=== PATIENT | male | born 1980 | race Hispanic/Latino ===

== ENCOUNTER 2019-11-03 14:53 | Emergency (ER) | payer SELFPAY ==
[2019-11-03] MEDS ORDERED: LIDOCAINE 1% MPF 5 ML VIAL ONE (15:20)
[2019-11-03] MEDS ORDERED: TETANUS & DIPHTHERIA TOX,ADULT 0.5 ML VIAL ONE (15:21)
[2019-11-03] MEDS ORDERED: DERMABOND SKIN ADHESIVE TOP ONE (15:48)
--- NOTE | 2019-11-03 16:00 | ER ---
Nurse's Notes [facility] Name: Garth Pacheco Age: 39 yrs Sex: Male : 1980 Arrival Date: 11/03/2019 Time: 14:56 Bed 16 Private MD: Diagnosis: Laceration without foreign body of lip Presentation: 11/03 15:01 Presenting complaint: Patient states: He got hit with a board an hour ago, laceration ss noted to upper lip, bleeding controlled. Transition of care: patient was not received from another setting of care. Complicating Factors: There are no complicating factors for this patient. Onset of symptoms was November 03, 2019. Risk Assessment: Do you want to hurt yourself or someone else? Patient reports no desire to harm self or others. Initial Sepsis Screen: Does the patient meet any 2 criteria? No. Patient's initial sepsis screen is negative. Does the patient have a suspected source of infection? No. Patient's initial sepsis screen is negative. Care prior to arrival: None. 15:01 Method Of Arrival: Ambulatory ss 15:01 Acuity: LAURYN 4 ss Triage Assessment: 15:01 General: Appears in no apparent distress. comfortable, Behavior is calm, cooperative, ss appropriate for age. Pain: Complains of pain in mouth. Neuro: Level of Consciousness is awake, alert, obeys commands. Injury Description: Laceration sustained to mouth. Historical: - Allergies: 15:01 No Known Allergies; ss - Home Meds: 15:01 None [Active]; ss - PMHx: 15:01 None; ss - PSHx: 15:01 None; ss - Immunization history:: Last tetanus immunization: unknown. - Coronavirus screen:: The patient has NOT traveled to [place], [place], or [place] in the past 14 days. - Social history:: Smoking status: Patient/guardian denies using tobacco. - Ebola Screening: : Patient denies travel to an Ebola-affected area in the 21 days before illness onset. Screenin:10 Abuse screen: Denies threats or abuse. Denies injuries from another. Nutritional sg screening: No deficits noted. Tuberculosis screening: No symptoms or risk factors identified. Never had TB. Fall Risk None identified. Assessment: 15:10 General: Appears in no apparent distress. well groomed, well developed, well nourished, sg Behavior is calm, cooperative, appropriate for age. Pain: Complains of pain in upper vermilion border Quality of pain is described as throbbing. Neuro: Level of Consciousness is awake, alert, obeys commands, Oriented to person, place, time, Polymerization Helper are equal bilaterally Moves all extremities. Gait is steady, Speech is normal, Facial symmetry appears normal. Cardiovascular: Patient's skin is warm and dry. Chest pain is denied. Respiratory: Airway is patent Respiratory effort is even, unlabored, Respiratory pattern is regular, symmetrical. GI: No signs and/or symptoms were reported involving the gastrointestinal system. : No signs and/or symptoms were reported regarding the genitourinary system. EENT: No signs and/or symptoms were reported regarding the EENT system. Derm: Skin is pink, warm \T\ dry. Musculoskeletal: Circulation, motion, and sensation intact. Range of motion: intact in all extremities, Swelling absent. Injury Description: Laceration sustained to upper vermilion border is clean, superficial, 0.5 to 2.5 cm long, was sustained 30-60 minutes ago. is bleeding a small amount. Vital Signs: 15:01 BP 141 / 95; Pulse 80; Resp 18; Temp 97.7; Pulse Ox 97% on R/A; Weight 81.65 kg (R); ss Height 5 ft. 3 in. (160.02 cm) (R); Pain 1/10; 16:04 BP 136 / 82; Pulse 80; Resp 17; Pulse Ox 98% on R/A; sg 15:01 Body Mass Index 31.89 (81.65 kg, 160.02 cm) ED Course: 14:56 Patient arrived in ED. mr 15:01 Triage completed. ss 15:01 Arm band placed on Patient placed in an exam room. ss 15:05 Lee Jones NP is PHCP. pm1 15:05 Alcides Rivers MD is Attending Physician. pm1 15:10 Patient has correct armband on for positive identification. Bed in low position. Call sg light in reach. Side rails up X2. herbologist on. Pulse ox on. NIBP on. Warm blanket given. Head of bed elevated. 15:15 Baldemar Moreno, RAH is Primary Nurse. 16:04 No provider procedures requiring assistance completed. Patient did not have IV access sg during this emergency room visit. 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 Exp: brodie 10/17/2021. Lot #: [id number]. } Route: IM; Site: left deltoid; 16:04 Drug: Ibuprofen 600 mg Route: PO; sg Outcome: 16:00 Discharge ordered by MD. pm1 16:04 Discharged to home ambulatory, with family. sg 16:04 Condition: good 16:04 Discharge instructions given to patient, Instructed on discharge instructions, follow up and referral plans. safety practices, wound care, Demonstrated understanding of instructions, follow-up care. 16:07 Patient left the ED. sg Signatures: Baldemar Moreno RN RN sg Rivera, Mary mr Smirch, Shelby, RN RN Lee Jones, LEAD C DEVELOPER LEAD C DEVELOPER pm1
--- NOTE | 2019-11-03 16:00 | EDPHYS ---
Physician Documentation [facility] Name: Garth Pacheco Age: 39 yrs Sex: Male : 1980 Arrival Date: 11/03/2019 Time: 14:56 Bed 16 Private MD: ED Physician Alcides Rivers HPI: 11/03 15:09 This 39 yrs old Male presents to ER via Ambulatory with complaints of pm1 Laceration To Lip. 15:09 The patient has a laceration occurred at home, and there are no complicating factors. pm1 The injury was The wind blew up a piece of wood that he was working with and it hit his upper lip . The laceration(s) is(are) located on the mouth. Onset: The symptoms/episode began/occurred just prior to arrival. Associated signs and symptoms: The patient has no apparent associated signs or symptoms, Pertinent negatives: heavy bleeding, loss of consciousness, suspected foreign body. The patient has not experienced similar symptoms in the past. The patient has not recently seen a physician. Historical: - Allergies: 15:01 No Known Allergies; ss - Home Meds: 15:01 None [Active]; ss - PMHx: 15:01 None; ss - PSHx: 15:01 None; ss - Immunization history:: Last tetanus immunization: unknown. - Coronavirus screen:: The patient has NOT traveled to [place], [place], or [place] in the past 14 days. - Social history:: Smoking status: Patient/guardian denies using tobacco. - Ebola Screening: : Patient denies travel to an Ebola-affected area in the 21 days before illness onset. ROS: 15:09 Constitutional: Negative for fever, chills, and weight loss, Eyes: Negative for injury, pm1 pain, redness, and discharge. 15:09 Neck: Negative for injury, pain, and swelling, Cardiovascular: Negative for chest pain, palpitations, and edema, Respiratory: Negative for shortness of breath, cough, wheezing, and pleuritic chest pain, Abdomen/GI: Negative for abdominal pain, nausea, vomiting, diarrhea, and constipation, MS/Extremity: Negative for injury and deformity. 15:09 Neuro: Negative for headache, weakness, numbness, tingling, and seizure. 15:09 ENT: Positive for injury or acute deformity, laceration. 15:09 Skin: Positive for laceration(s), of the upper vermilion border. Exam: 15:09 Constitutional: This is a well developed, well nourished patient who is awake, alert, pm1 and in no acute distress. 15:09 Eyes: Pupils equal round and reactive to light, extra-ocular motions intact. Lids and lashes normal. Conjunctiva and sclera are non-icteric and not injected. Cornea within normal limits. Periorbital areas with no swelling, redness, or edema. 15:09 Neck: Trachea midline, no thyromegaly or masses palpated, and no cervical lymphadenopathy. Supple, full range of motion without nuchal rigidity, or vertebral point tenderness. No Meningismus. Chest/axilla: Normal chest wall appearance and motion. Nontender with no deformity. No lesions are appreciated. Cardiovascular: Regular rate and rhythm with a normal S1 and S2. No gallops, murmurs, or rubs. Normal PMI, no JVD. No pulse deficits. 15:09 Head/face: Noted is no obvious of injury or deformity except a laceration(s), of the upper vermilion border. 15:09 ENT: External ear(s): are unremarkable, Ear canal(s): are normal, TM's: are normal, Mouth: Lips: laceration upper lip, Oral mucosa: normal, Gums: normal with healthy appearance. 15:09 Skin: Appearance: normal except for affected area, injury, laceration(s), of the upper vermilion border, that can be described as clean, no foreign body, irregular, without bleeding. 15:09 Neuro: Orientation: is normal, Motor: is normal, moves all fours. Vital Signs: 15:01 BP 141 / 95; Pulse 80; Resp 18; Temp 97.7; Pulse Ox 97% on R/A; Weight 81.65 kg (R); ss Height 5 ft. 3 in. (160.02 cm) (R); Pain 1/10; 16:04 BP 136 / 82; Pulse 80; Resp 17; Pulse Ox 98% on R/A; sg 15:01 Body Mass Index 31.89 (81.65 kg, 160.02 cm) ss Laceration: 15:57 Wound Repair of 1.5cm ( 0.6in ) subcutaneous laceration to upper vermilion border. pm1 Irregularly shaped.. Distal neuro/vascular/tendon intact. Anesthesia: Local anesthetic administered with 2 mls of 1% lidocaine. Wound prep: Extensive cleansing with hibiclenz by me, Wound irrigation with saline by me, Wound explored extensively, Copious irrigation. Skin closed with 4 5-0 Prolene using simple sutures and sterile technique. Skin closed with 1-0 Adhesive skin closure using Dermabond. Patient tolerated well. MDM: 15:06 Patient medically screened. pm1 15:57 Data reviewed: vital signs. Data interpreted: Pulse oximetry: on room air is 97 %. pm1 Interpretation: normal. Counseling: I had a detailed discussion with the patient and/or guardian regarding: the historical points, exam findings, and any diagnostic results supporting the discharge/admit diagnosis, the need for outpatient follow up, to return to the emergency department if symptoms worsen or persist or if there are any questions or concerns that arise at home. 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 Exp: 10/17/2021. Lot #: [id number]. } Route: IM; Site: left deltoid; 16:04 Drug: Ibuprofen 600 mg Route: PO; Disposition: 11/04 07:37 Co-signature as Attending Physician, Alcides Rivers MD I agree with the assessment and douglas plan of care. Disposition: 11/03/19 16:00 Discharged to Home. Impression: Laceration without foreign body of lip. - Condition is Stable. - Discharge Instructions: Tissue Adhesive Wound Care, Facial Laceration. - Medication Reconciliation Form, Thank You Letter, Antibiotic Education, Prescription Opioid Use form. - Follow up: Emergency Department; When: As needed; Reason: Worsening of condition. Follow up: Private Physician; When: Suture removal in 4-5 days; Reason: Recheck today's complaints, Continuance of care, Staple/Suture removal, Re-evaluation by your physician. - Problem is new. - Symptoms have improved. Signatures: Baldemar Moreno RN RN Alcides Lozada MD MD cha Smirch, Shelby, RN RN ss Marinas, Patrick, CARD BOXER CARD BOXER pm1 Corrections: (The following items were deleted from the chart) 11/03 16:07 16:00 11/03/2019 16:00 Discharged to Home. Impression: Laceration without foreign body sg of lip. Condition is Stable. Forms are Medication Reconciliation Form, Thank You Letter, Antibiotic Education, Prescription Opioid Use. Follow up: Emergency Department; When: As needed; Reason: Worsening of condition. Follow up: Private Physician; When: Suture removal in 4-5 days; Reason: Recheck today's complaints, Continuance of care, Staple/Suture removal, Re-evaluation by your physician. Problem is new. Symptoms have improved. pm1
[2019-11-03] MEDS ORDERED: IBUPROFEN 200 MG TAB PO ONE (16:05)
[2019-11-03 16:15] VITALS: BP 141/95; TEMP 97.7; O2SAT 97
== END 2019-11-03 16:07 | disposition home or self-care (01) ==
LOC: ER 14:53
PROC: 0CQ0XZZ Repair Upper Lip, External Approach (ICD-10-PCS; principal; 2019-11-03)
DX: S01.511A Laceration without foreign body of lip, initial encounter (principal); W22.8XXA Striking against or struck by other objects, initial encounter; Y93.89 Activity, other specified; Y92.009 Unspecified place in unspecified non-institutional (private) residence as the place of occurrence of the external cause; Z23 Encounter for immunization
CPT/HCPCS: 90471; 90714; 99284